=== PATIENT | female | born 1950 | race African-American/Black ===

== ENCOUNTER 2018-03-28 09:10 | Emergency (ER) | payer OTHER, BC ==
[2018-03-28 09:16] VITALS: BP 131/71; PULSE 72; TEMP 97.9; BMI 25.2
--- NOTE | 2018-03-28 10:36 | PDOC ---
History of Present Illness - General Chief Complaint: Ear Problem Stated Complaint: EAR ACHE Time Seen by Provider: 03/28/18 09:59 History Source: Patient, Family Exam Limitations: No Limitations - History of Present Illness Initial Comments: 03/28/18 10:37 Patient came for reevaluation of right ear pain. States March 15 was evaluated and treated for otitis media and shingles to her face , finished amoxicillin for same and Valtrex prescribed at urgent care. Patient states blisters of shingles resolved but pain has persisted. States pain is in the right cheek area and ear and was concerned may have persistent ear infection 03/28/18 14:05 Timing/Duration: unsure Severity: moderate Associated Symptoms: reports: headaches, malaise. denies: cough, fever/chills Past History - Travel Traveled outside of the country in the last 30 days: No Close contact w/someone who was outside of country & ill: No - Past Medical History Allergies/Adverse Reactions: Allergies Allergy/AdvReac Type Severity Reaction Status Date / Time No Known Allergies Allergy Verified 03/28/18 09:12 Home Medications: Ambulatory Orders Gabapentin 300 mg PO DAILY #20 capsule 03/28/18 COPD: No Other medical history: shingles - Immunization History Immunization Up to Date: Yes - Suicide/Smoking/Psychosocial Hx Smoking History: Never smoked Review of Systems - Review of Systems Able to Perform ROS?: Yes Is the patient limited Croatian proficient: Yes Constitutional: Yes: Symptoms Reported, See HPI, Loss of Appetite, Malaise. No : Fever HEENTM: Yes: Symptoms Reported, See HPI, Ear Pain. No: Ear Discharge, Throat Swelling Respiratory: Yes: See HPI. No: Symptoms reported, Cough ABD/GI: No: Symptoms Reported Integumentary: Yes: Symptoms Reported All Other Systems: Reviewed and Negative *Physical Exam - Vital Signs Last Vital Signs Temp Pulse Resp BP Pulse Ox 97.9 F 72 18 131/71 100 03/28/18 09:12 03/28/18 09:12 03/28/18 09:12 03/28/18 09:12 03/28/18 09:12 - Physical Exam General Appearance: Yes: Nourished, Appropriately Dressed, Mild Distress. No: Apparent Distress HEENT: positive: SHEILA, Normal ENT Inspection, Normal Voice, TMs Normal (no redness/ bulging or lesions noted ), Pharynx Normal Neck: positive: Supple, Lymphadenopathy (R), Lymphadenopathy (L). negative: Tender (congestive the landmarks easily visualized) Respiratory/Chest: positive: Lungs Clear, Normal Breath Sounds. negative: Wheezing Gastrointestinal/Abdominal: positive: Normal Bowel Sounds, Soft. negative: Tender Musculoskeletal: positive: Normal Inspection Extremity: positive: Normal Capillary Refill, Normal Inspection, Normal Range of Motion Integumentary: positive: Normal Color, Dry, Warm, Pale, Other (no rashes or lesions ) Neurologic: positive: band presser II-XII NML intact, Fully Oriented, Alert, Normal Mood/ Affect, Normal Response, Motor Strength 5/5 Moderate Sedation - Procedure Monitoring Vital Signs: Procedure Monitoring Vital Signs Temperature 97.9 F 03/28/18 09:12 Pulse Rate 72 03/28/18 09:12 Respiratory Rate 18 03/28/18 09:12 Blood Pressure 131/71 03/28/18 09:12 O2 Sat by Pulse Oximetry (%) 100 03/28/18 09:12 Medical Decision Making - Medical Decision Making 03/28/18 11:15 Postherpetic neuralgia to right ear. No evidence of infection, will start on gabapentin and encouraged to follow up with her PMD this week for reevaluation and possible long-term treatment. *DC/Admit/Observation/Transfer Diagnosis at time of Disposition: Post herpetic neuralgia - Discharge Dispostion Disposition: HOME Condition at time of disposition: Stable Decision to Admit order: No - Prescriptions Prescriptions: Gabapentin 300 mg PO DAILY #20 capsule - Referrals Referrals: Sushil Castle MD, MD [Primary Care Provider] - - Patient Instructions Printed Discharge Instructions: Sammy, DI for Trigeminal Neuralgia Additional Instructions: Rest, drink lots of fluids to stay well hydrated Avoid any heavy lifting or strenuous activity until pain resolves Gabapentin for pain relief, one tablet today, 2 tablets tomorrow, and then 3 tablets after for pain relief or as instructed by private physician Follow-up with your private physician for evaluation and potential change in medications Return to emergency department for worsened pain, fevers, or recurrence of shingles rash - Post Discharge Activity
== END 2018-03-28 10:37 | disposition home or self-care (01) ==
LOC: JERFT 09:10
DX: B02.29 Other postherpetic nervous system involvement (principal)
CPT/HCPCS: 99281-25

== ENCOUNTER 2018-05-12 10:56 | Emergency (ER) | payer OTHER, BC ==
[2018-05-12 11:21] VITALS: BP 118/57; PULSE 73; TEMP 97.6; BMI 24.7
--- NOTE | 2018-05-12 12:30 | PDOC ---
History of Present Illness - General Chief Complaint: Pain Stated Complaint: SWALLON FACE Time Seen by Provider: 05/12/18 12:15 - History of Present Illness Initial Comments: 05/12/18 12:26 67-year-old female without comorbidities presents for evaluation of shingles. She was treated with valacyclovir Neurontin and Lyrica for an outbreak on the right side of her cheek going into her lip over time the rash is resolving gotten better so his her pain but it still has not totally resolved. She has no systemic symptoms. She complains of burning on her face Past History - Past Medical History Allergies/Adverse Reactions: Allergies Allergy/AdvReac Type Severity Reaction Status Date / Time No Known Allergies Allergy Verified 05/12/18 11:19 Home Medications: Ambulatory Orders Gabapentin 300 mg PO DAILY #20 capsule 03/28/18 Pregabalin [Lyrica -] 150 mg PO BID 05/12/18 Valacyclovir HCl [Valtrex -] 1,000 mg PO TID 05/12/18 COPD: No - Immunization History Immunization Up to Date: Yes - Suicide/Smoking/Psychosocial Hx Smoking History: Never smoked Hx Alcohol Use: No Drug/Substance Use Hx: No Review of Systems - Review of Systems Constitutional: No: Fever Integumentary: Yes: Rash *Physical Exam - Vital Signs Last Vital Signs Temp Pulse Resp BP Pulse Ox 97.6 F 73 18 118/57 L 97 05/12/18 11:19 05/12/18 11:19 05/12/18 11:19 05/12/18 11:19 05/12/18 11:19 - Physical Exam Comments: 05/12/18 12:27 HEAD: NC/AT EYES: Conjuntiva clear MS: Full ROM in all joints without edema NEUROLOGIC: No gross sensory or motor deficits, NVID SKIN: Normal color and temperature there is a resolving vesicular rash without any open lesions on the right side of the cheek the rash does not cross midline. Moderate Sedation - Procedure Monitoring Vital Signs: Procedure Monitoring Vital Signs Temperature 97.6 F 05/12/18 11:19 Pulse Rate 73 05/12/18 11:19 Respiratory Rate 18 05/12/18 11:19 Blood Pressure 118/57 L 05/12/18 11:19 O2 Sat by Pulse Oximetry (%) 97 05/12/18 11:19 Medical Decision Making - Medical Decision Making 05/12/18 12:29 Patient finished a course of valacyclovir she is currently on Neurontin. This is a resolving shingles rash she will follow-up with primary care physician *DC/Admit/Observation/Transfer Diagnosis at time of Disposition: Post herpetic neuralgia - Discharge Dispostion Disposition: HOME Condition at time of disposition: Stable Decision to Admit order: No - Referrals Referrals: Sushil Castle MD, MD [Primary Care Provider] - - Patient Instructions Printed Discharge Instructions: DI for Shingles, Shingles Additional Instructions: Kidney with the Neurontin as prescribed. Follow-up with your primary care physician one to 2 days for further evaluation and treatment options. Tylenol may also help with your pain please take that as directed along with Motrin if you can tolerated with food discontinue the Motrin if it bothers her stomach. - Post Discharge Activity
== END 2018-05-12 12:31 | disposition home or self-care (01) ==
LOC: JERFT 10:56
DX: B02.29 Other postherpetic nervous system involvement (principal)
CPT/HCPCS: 99281-25

== ENCOUNTER → 2022-11-11 | Day surgery (SDC) | payer OTHER, BC | END | disposition home or self-care (01) | LOC: FMAMMOTONE 09:45 | PROVIDERS: ATTEND Internal Medicine | PROC: 0HBU3ZX Excision of Left Breast, Percutaneous Approach, Diagnostic (ICD-10-PCS; principal; 2022-11-11) | DX: Z53.8 Procedure and treatment not carried out for other reasons (principal); R92.1 Mammographic calcification found on diagnostic imaging of breast | CPT/HCPCS: 19081 ==

== ENCOUNTER 2023-07-23 04:17 | Day surgery (SDC) | payer OTHER, BC ==
[2023-07-20 11:55] VITALS: BMI 19.7
[2023-07-23 12:26] VITALS: TEMP 97.6
[2023-07-23 12:27] VITALS: BP 122/70
[2023-07-23 12:28] VITALS: PULSE 75
[2023-07-23 12:29] VITALS: RESP 18
== END 2023-07-23 12:35 | disposition home or self-care (01) ==
LOC: JASU-ENDO 04:17
PROVIDERS: ATTEND Internal Medicine Gastroenterology
PROC: 0DBM8ZX Excision of Descending Colon, Via Natural or Artificial Opening Endoscopic, Diagnostic (ICD-10-PCS; principal; 2023-07-23 11:00)
DX: Z12.11 Encounter for screening for malignant neoplasm of colon (principal); D12.4 Benign neoplasm of descending colon; K57.30 Diverticulosis of large intestine without perforation or abscess without bleeding
CPT/HCPCS: 88305-TC